=== PATIENT | male | born 1965 | race Caucasian/White ===

== ENCOUNTER 2023-03-14 16:24 | Emergency (ER) | payer OTHER ==
[~2023-03-14] VITALS: Ht 177.8 cm; Wt 87.1 kg
[2023-03-14] MEDS ORDERED: AVAPRO75 MG (17:06)
== END 2023-03-14 18:10 | disposition home or self-care (01) ==
LOC: ER 16:24
DX: S05.01XA Injury of conjunctiva and corneal abrasion without foreign body, right eye, initial encounter (principal); W45.8XXA Other foreign body or object entering through skin, initial encounter; Y93.89 Activity, other specified; Y92.89 Other specified places as the place of occurrence of the external cause; Y99.9 Unspecified external cause status